=== PATIENT | male | born 1980 | race African-American/Black ===

== ENCOUNTER 2020-10-01 03:23 | Emergency (ER) | payer OTHER ==
[~2020-10-01] VITALS: Ht 170.2 cm; Wt 114.0 kg
[2020-10-01] MEDS ORDERED: DEXAMETHASONE SOD PHOS 4 MG/ML 5 ML VIAL IM ONE (03:45)
[2020-10-01] MEDS ORDERED: FAMOTIDINE 20 MG TABLET PO ONE (03:45)
[2020-10-01] MEDS ORDERED: DiphenhydrAMINE HCL 50 MG/ML VIAL IM ONE (03:45)
[2020-10-01] MEDS ORDERED: DEXAMETHASONE SOD PHOS 4 MG/ML 5 ML VIAL IVP ONE (04:00)
[2020-10-01] MEDS ORDERED: FAMOTIDINE 10 MG/ML 2 ML VIAL IVP ONE (04:00)
[2020-10-01] MEDS ORDERED: DiphenhydrAMINE HCL 50 MG/ML VIAL IVP ONE (04:00)
[2020-10-01] MEDS ORDERED: EPINEPHrine 1:1,000 [1 MG/ML] AMP IM ONE (05:30)
[2020-10-01 06:58] VITALS: BP 123/65
== END 2020-10-01 07:20 | disposition home or self-care (01) ==
LOC: EMS 03:23
DX: T78.2XXA Anaphylactic shock, unspecified, initial encounter (principal); L50.0 Allergic urticaria; X58.XXXA Exposure to other specified factors, initial encounter
CPT/HCPCS: 96372; 96374; 96375; 99285; J0171; J1100; J1200; J3490